=== PATIENT | male | born 1970 | race Caucasian/White ===

== ENCOUNTER 2016-09-20 21:21 | Emergency (ER) | payer OTHER ==
[~2016-09-20] VITALS: Ht 177.8 cm; Wt 205.0 kg
[2016-09-20 21:21] VITALS: BP_SYST 134
[2016-09-20 23:54] LABS: BASOPHILS # (AUTO) 0.1 K/uL (0.0-0.2); EOSINOPHILS # (AUTO) 0.2 K/uL (0.0-0.4); EOSINOPHILS % (AUTO) 2.3 % (0.0-4.0); HEMATOCRIT 35.5 % (36-54); HEMOGLOBIN 11.7 g/dL (14.0-18.0); LYMPHOCYTES # (AUTO) 1.9 K/uL (1.0-5.5); LYMPHOCYTES % (AUTO) 24.2 % (20.5-51.5); MEAN CORPUSCULAR HEMOGLOBIN 28 pg (27-31); MEAN CORPUSCULAR HGB CONC 33 % (32-36); MEAN CORPUSCULAR VOLUME 83 fL (79.0-98.0); MONOCYTES # (AUTO) 0.5 K/uL (0.0-1.0); MONOCYTES % (AUTO) 6.7 % (1.7-9.3); NEUTROPHILS # (AUTO) 5.3 K/uL (1.8-7.7); NEUTROPHILS % (AUTO) 65.8 % (40.0-70.0); PLATELET COUNT (AUTO) 248 K/uL (130-430); RED BLOOD CELL COUNT(AUTO) 4.26 MIL/uL (4.2-6.2); RED CELL DISTRIBUTION WIDTH 14.2 % (9.0-15.0)
[2016-09-21 00:10] LABS: CALCIUM 8.5 mg/dL (8.4-11.0); CREATININE 0.78 mg/dL (0.55-1.30)
[2016-09-21 00:15] LABS: ALBUMIN 3.2 g/dL (3.4-4.8); TOTAL BILIRUBIN 0.3 mg/dL (0.0-1.0); TOTAL PROTEIN, SERUM 7.6 g/dL (6.4-8.3)
[2016-09-21] MEDS ORDERED: KETOROLAC TROMETHAMINE 30 MG VIAL IVP ONE (00:15)
[2016-09-21 02:12] VITALS: BP_SYST 130
[2016-09-21] MEDS ORDERED: NITROGLYCERIN 0.4 MG TAB.SUBL SL ONE (16:59)
== END 2016-09-21 02:12 | disposition home or self-care (01) ==
LOC: SED 21:21
DX: R10.11 Right upper quadrant pain (principal); I10 Essential (primary) hypertension; Z98.84 Bariatric surgery status; Z88.1 Allergy status to other antibiotic agents
CPT/HCPCS: 36415; 76705; 80053; 83690; 85025; 96374; 99285; J1885

== ENCOUNTER 2017-01-15 18:26 | Emergency (ER) | payer OTHER ==
[~2017-01-15] VITALS: Ht 177.8 cm; Wt 199.6 kg
[2017-01-15 18:56] VITALS: BP_SYST 197
[2017-01-15] MEDS ORDERED: NITROGLYCERIN 0.4 MG TAB.SUBL SL ONE (19:00)
[2017-01-15] MEDS ORDERED: ASPIRIN 325 MG TABLET PO ONE (19:00)
[2017-01-15 19:14] LABS: BASOPHILS % (AUTO) 0.5 % (0.0-2.0); EOSINOPHILS # (AUTO) 0.2 K/uL (0.0-0.4); EOSINOPHILS % (AUTO) 2.8 % (0.0-4.0); HEMATOCRIT 37.5 % (36-54); HEMOGLOBIN 12.4 g/dL (14.0-18.0); LYMPHOCYTES # (AUTO) 1.7 K/uL (1.0-5.5); LYMPHOCYTES % (AUTO) 21.5 % (20.5-51.5); MEAN CORPUSCULAR HEMOGLOBIN 27 pg (27-31); MEAN CORPUSCULAR HGB CONC 33 % (32-36); MEAN CORPUSCULAR VOLUME 83 fL (79.0-98.0); MONOCYTES # (AUTO) 0.5 K/uL (0.0-1.0); MONOCYTES % (AUTO) 5.9 % (1.7-9.3); NEUTROPHILS # (AUTO) 5.6 K/uL (1.8-7.7); NEUTROPHILS % (AUTO) 69.3 % (40.0-70.0); PLATELET COUNT (AUTO) 274 K/uL (130-430); RED BLOOD CELL COUNT(AUTO) 4.54 MIL/uL (4.2-6.2); RED CELL DISTRIBUTION WIDTH 14.2 % (9.0-15.0)
[2017-01-15 19:24] LABS: CALCIUM 8.6 mg/dL (8.4-11.0); CREATININE 0.75 mg/dL (0.55-1.30); POTASSIUM 4.1 mmol/L (3.5-5.1)
[2017-01-15 19:29] LABS: ALBUMIN 3.3 g/dL (3.4-4.8); TOTAL BILIRUBIN 0.2 mg/dL (0.0-1.0)
[2017-01-15 20:46] VITALS: BP_SYST 119
== END 2017-01-15 20:46 | disposition home or self-care (01) ==
LOC: SED 18:26
DX: R07.89 Other chest pain (principal); I10 Essential (primary) hypertension; Z88.1 Allergy status to other antibiotic agents; E66.01 Morbid (severe) obesity due to excess calories; Z68.44 Body mass index [BMI] 60.0-69.9, adult
CPT/HCPCS: 36415; 71010; 80053; 82550-TC; 83880; 84484; 85025; 85379; 93005; 99285

== ENCOUNTER 2017-04-10 10:29 | Emergency (ER) | payer OTHER ==
[~2017-04-10] VITALS: Ht 177.8 cm; Wt 208.7 kg
[2017-04-10 10:29] VITALS: BP_SYST 140
--- NOTE | 2017-04-10 10:29 | NUR ---
BROUGHT BACK TO BED #8 AND TRIAGED. REPORT GIVEN TO DAMARIS
--- NOTE | 2017-04-10 10:35 | NUR ---
Pt presents to ER c/o pain with urination, hematuria, and R flank pain. Pt reports these symptoms have been present past 2 days. Pt reports pain level 10/10. Pt reports history of HTN, kidney stones, and Rheumatoid arthiritis. Pt in no acute distress, AOX4, allergy to azithromycin noted.
--- NOTE | 2017-04-10 10:40 | NUR ---
ER at bedside examining patient.
--- NOTE | 2017-04-10 10:57 | NUR ---
Urine collected and sent to lab.
[2017-04-10 11:01] LABS: BILIRUBIN,URINE 1+ (NEGATIVE); BLOOD, URINE 3+ (NEGATIVE); CLARITY/URINE CLOUDY (CLEAR); COLOR,URINE BROWN (YELLOW); GLUCOSE,URINE NEGATIVE (NEGATIVE); KETONES,URINE NEGATIVE (NEGATIVE); LEUKOCYTE ESTERASE ,URINE 2+ (NEGATIVE); NITRITE, URINE NEGATIVE (NEGATIVE); PROTEIN URINE 2+ (NEGATIVE); UROBILINOGEN,URINE 0.2 (0.2-1.0)
--- NOTE | 2017-04-10 11:08 | NUR ---
Pt medicated for pain level 10/10 in bilateral flanks. Pt tolerated well, will continue to monitor.
[2017-04-10] MEDS: KETOROLAC TROMETHAMINE 60 MG/2 ML VIAL IM ONE ×2 (11:10)
[2017-04-10 11:11] LABS: RBC,URINE >100 /HPF (0-3); WBC,URINE >100 /HPF (0-3)
[2017-04-10 11:12] LABS: BACTERIA,URINE MODERATE /HPF (None Seen)
--- NOTE | 2017-04-10 11:27 | NUR ---
Pt pain level reassessed. Pt states that pain is now 4/10. Will continue to monitor.
[2017-04-10 11:28] LABS: BASOPHILS % (AUTO) 0.6 % (0.0-2.0); CALCIUM 8.9 mg/dL (8.4-11.0); CREATININE 0.74 mg/dL (0.55-1.30); EOSINOPHILS # (AUTO) 0.2 K/uL (0.0-0.4); EOSINOPHILS % (AUTO) 2.6 % (0.0-4.0); LYMPHOCYTES # (AUTO) 1.7 K/uL (1.0-5.5); LYMPHOCYTES % (AUTO) 22.3 % (20.5-51.5); MEAN CORPUSCULAR HEMOGLOBIN 27 pg (27-31); MEAN CORPUSCULAR HGB CONC 33 % (32-36); MEAN CORPUSCULAR VOLUME 82 fL (79.0-98.0); MONOCYTES # (AUTO) 0.4 K/uL (0.0-1.0); MONOCYTES % (AUTO) 5.6 % (1.7-9.3); NEUTROPHILS # (AUTO) 5.4 K/uL (1.8-7.7); NEUTROPHILS % (AUTO) 68.9 % (40.0-70.0); PLATELET COUNT (AUTO) 271 K/uL (130-430); RED BLOOD CELL COUNT(AUTO) 4.76 MIL/uL (4.2-6.2); RED CELL DISTRIBUTION WIDTH 14.5 % (9.0-15.0); WHITE BLOOD COUNT (AUTO) 7.7 K/uL (4.8-10.8)
[2017-04-10 11:32] LABS: ALBUMIN 3.5 g/dL (3.4-4.8); TOTAL BILIRUBIN 0.3 mg/dL (0.0-1.0)
--- NOTE | 2017-04-10 12:32 | NUR ---
ER at bedside providing pt with an update on lab results.
--- NOTE | 2017-04-10 13:11 | NUR ---
Pt provided with strainer to monitor for passing of stones when pt urinates.
[2017-04-10 13:12] VITALS: BP_SYST 153
--- NOTE | 2017-04-10 13:12 | NUR ---
Patient given written and verbal discharge instructions and verbalizes understanding. ER MD discussed with patient the results and treatment provided. Patient in stable condition. ID arm band removed. Rx of Toradol given. Patient educated on pain management and to follow up with PMD. Pain Scale 8/10 but pt advised to fill out prescription pain med and take it at home. Opportunity for questions provided and answered.
== END 2017-04-10 13:12 | disposition home or self-care (01) ==
LOC: SED 10:30
DX: N20.0 Calculus of kidney (principal); R31.9 Hematuria, unspecified; I10 Essential (primary) hypertension; E66.01 Morbid (severe) obesity due to excess calories; Z68.44 Body mass index [BMI] 60.0-69.9, adult; Z87.442 Personal history of urinary calculi; Z88.1 Allergy status to other antibiotic agents
CPT/HCPCS: 36415; 80053; 81000; 83690; 85025; 87086; 87186; 96372; 99284; J1885

== ENCOUNTER 2017-07-10 20:24 | Emergency (ER) | payer OTHER ==
[~2017-07-10] VITALS: Ht 177.8 cm; Wt 186.9 kg
[2017-07-10 20:30] VITALS: BP_SYST 160
[2017-07-10] MEDS ORDERED: KETOROLAC TROMETHAMINE 60 MG/2 ML VIAL IM ONE (20:45)
[2017-07-10 21:50] VITALS: BP_SYST 138
== END 2017-07-10 21:50 | disposition home or self-care (01) ==
LOC: SED 20:24
DX: S40.011A Contusion of right shoulder, initial encounter (principal); S80.02XA Contusion of left knee, initial encounter; S90.112A Contusion of left great toe without damage to nail, initial encounter; I10 Essential (primary) hypertension; M06.9 Rheumatoid arthritis, unspecified; E66.01 Morbid (severe) obesity due to excess calories; Z68.43 Body mass index [BMI] 50.0-59.9, adult; Z88.1 Allergy status to other antibiotic agents; W01.0XXA Fall on same level from slipping, tripping and stumbling without subsequent striking against object, initial encounter; Y93.89 Activity, other specified; Y92.89 Other specified places as the place of occurrence of the external cause; Y99.8 Other external cause status
CPT/HCPCS: 73030; 73560; 73630; 96372; 99284; J1885

== ENCOUNTER 2017-12-03 22:34 | Emergency (ER) | payer OTHER ==
[~2017-12-03] VITALS: Ht 177.8 cm; Wt 213.2 kg
[2017-12-03 23:31] VITALS: BP_SYST 120
--- NOTE | 2017-12-03 23:35 | NUR ---
Note undone in EDM - 12/04/17 at 0239 by [email or web address] Pt is AAOx4 and ambulatory. Pt c/o 12/21 pain in his left foot. Swelling and redness is noted to the site. Per pt he fell while taking out the trash a couple weeks ago and his ankle/foot has "never been the same". Pt states pain is most felt on the lateral edge of his foot. Pt denies any other complaints at this time. Will continue to monitor pt.
--- NOTE | 2017-12-04 00:23 | NUR ---
Patient to ER bed 02 to gown for evaluation. Side rails up. Report given to RADHA Vazquez
--- NOTE | 2017-12-04 00:30 | NUR ---
Pt is AAOx4 and ambulatory. Pt c/o 10/10 pain in his left foot. Swelling and redness is noted to the site. Per pt he fell while taking out the trash a couple weeks ago and his ankle/foot has "never been the same". Pt states pain is most felt on the lateral edge of his foot. Pt denies any other complaints at this time. Will continue to monitor pt.
--- NOTE | 2017-12-04 00:35 | NUR ---
HERMELINDO Beach at bedside examining patient.
[2017-12-04] MEDS ORDERED: HYDROcodone/ACETAMIN 5-325 MG TAB (NORCO/ VICODIN) PO ONE ×2 (01:00→02:15)
[2017-12-04 01:22] LABS: BASOPHILS # (AUTO) 0.2 K/uL (0.0-0.2); BASOPHILS % (AUTO) 1.6 % (0.0-2.0); EOSINOPHILS # (AUTO) 0.3 K/uL (0.0-0.4); HEMATOCRIT 38.5 % (36-54); HEMOGLOBIN 12.4 g/dL (14.0-18.0); LYMPHOCYTES # (AUTO) 2.6 K/uL (1.0-5.5); LYMPHOCYTES % (AUTO) 26.7 % (20.5-51.5); MEAN CORPUSCULAR HEMOGLOBIN 28 pg (27-31); MEAN CORPUSCULAR HGB CONC 32 % (32-36); MEAN CORPUSCULAR VOLUME 87 fL (79.0-98.0); MONOCYTES # (AUTO) 1.1 K/uL (0.0-1.0); MONOCYTES % (AUTO) 10.9 % (1.7-9.3); NEUTROPHILS # (AUTO) 5.4 K/uL (1.8-7.7); NEUTROPHILS % (AUTO) 57.8 % (40.0-70.0); PLATELET COUNT (AUTO) 264 K/uL (130-430); RED BLOOD CELL COUNT(AUTO) 4.43 MIL/uL (4.2-6.2); RED CELL DISTRIBUTION WIDTH 14.9 % (9.0-15.0); WHITE BLOOD COUNT (AUTO) 9.6 K/uL (4.8-10.8)
[2017-12-04 01:39] LABS: CALCIUM 9.1 mg/dL (8.4-11.0); POTASSIUM 3.9 mmol/L (3.5-5.1)
[2017-12-04 01:44] LABS: ALBUMIN 3.3 g/dL (3.4-4.8); TOTAL BILIRUBIN 0.2 mg/dL (0.0-1.0)
[2017-12-04] MEDS ORDERED: KETOROLAC TROMETHAMINE 60 MG/2 ML VIAL IM ONE (02:15)
[2017-12-04 02:30] VITALS: BP_SYST 120
--- NOTE | 2017-12-04 02:30 | NUR ---
Patient given written and verbal discharge instructions and verbalizes understanding. ER MD discussed with patient the results and treatment provided. Patient in stable condition. Patient educated on pain management and to follow up with PMD. Pain Scale 2/10 but tolerable for pt.Opportunity for questions provided and answered. Medication side effect fact sheet provided.
== END 2017-12-04 02:30 | disposition home or self-care (01) ==
LOC: SED 22:34
DX: S93.602A Unspecified sprain of left foot, initial encounter (principal); I10 Essential (primary) hypertension; M06.9 Rheumatoid arthritis, unspecified; E66.01 Morbid (severe) obesity due to excess calories; Z68.44 Body mass index [BMI] 60.0-69.9, adult; Z88.1 Allergy status to other antibiotic agents; W10.9XXA Fall (on) (from) unspecified stairs and steps, initial encounter; Y93.89 Activity, other specified; Y92.009 Unspecified place in unspecified non-institutional (private) residence as the place of occurrence of the external cause; Y99.8 Other external cause status
CPT/HCPCS: 36415; 73630; 80053; 83880; 85025; 96372; 99285; J1885

== ENCOUNTER 2018-11-27 01:04 | Inpatient (IN) | payer OTHER ==
[~2018-11-27] VITALS: Ht 180.3 cm; Wt 216.8 kg
[2018-11-27] VITALS (7 sets, daily range): BP systolic 115–158
--- NOTE | 2018-11-27 01:04 | NUR ---
Dr Ronquillo attempting to do MSE at the parking lot prior registration while patient was vomiting, pt frustrated,this nurse attempted to get patient into wheelchair, pt frustrated ,pt walked himself to room [address] Ronquillo directions , magnetic prospecting supervisor notified.
--- NOTE | 2018-11-27 01:05 | NUR ---
Placed on lunchroom monitor, blood pressure machine and pulse oximeter. To gown for exam. Side rails up.Report given to Leonarda and Dr Woo .
--- NOTE | 2018-11-27 01:05 | NUR ---
Patient to ER bed 05 to gown for evaluation. Side rails up.
--- NOTE | 2018-11-27 01:06 | NUR ---
ER at bedside examining patient.
--- NOTE | 2018-11-27 01:09 | NUR ---
Placed in room 08 . Placed on material handler 2nd shift, blood pressure machine and pulse oximeter. To gown for exam. Side rails up.
--- NOTE | 2018-11-27 01:10 | NUR ---
patient request more time. educated patient on delay in treatment in emergency settings. MD notified.
[2018-11-27] MEDS ORDERED: ONDANSETRON HCL 4 MG/2 ML VIAL IVP ONE (01:15)
[2018-11-27] MEDS ORDERED: NACL 0.9% 1,000 ML IV ONE ×2 (01:15→04:30)
[2018-11-27] MEDS ORDERED: MORPHINE 2 MG/ML INJ. SYRINGE IVP ONE (01:15)
--- NOTE | 2018-11-27 01:20 | NUR ---
patient refused IV placement. patient stated "I need more time."
--- NOTE | 2018-11-27 01:20 | NUR ---
lab attempt x3 to draw without success. patient refused forth attempt
--- NOTE | 2018-11-27 01:25 | NUR ---
requested IV placement. patient refused IV placement, patient stated "I need more time." educated patient on delay in treatment protocol. notified MD and charge nurse.
--- NOTE | 2018-11-27 01:31 | NUR ---
patient BIB with c/o right bui pain x one day. patient has been moving boxes for the past week. patient states has chronic back pain and he may have hurt his back and bui over the weekend. patient states pain is 8/10. patient vomited and coughed x 2 today. patient denies flu shot this year. no other compalint or injury at this time.
--- NOTE | 2018-11-27 01:45 | NUR ---
Note [email or web address] in EDM - 11/27/18 at 0214 by [email or web address] Medicated per MD orders. IVF infusing with no s/s of infiltration at this time. Will cont to monitorMedication reconciliation completed with information provided by []. Any prior medication reconciliation on file was reviewed and corrected.
--- NOTE | 2018-11-27 01:45 | NUR ---
# 22 gauge angiocath placed to RAC. Use of asceptic technique. Opsite placed over site. Blood return noted. Blood for lab drawn from site. Flushed with 10 cc of normal saline. No evidence of infiltration noted. Patient tolerated well.
--- NOTE | 2018-11-27 01:45 | NUR ---
Medicated per MD orders. IVF infusing with no s/s of infiltration at this time. Will cont to monitor
--- NOTE | 2018-11-27 01:50 | NUR ---
refused to provide urine at this time. patient understands it delays treatment option.
--- NOTE | 2018-11-27 02:10 | NUR ---
Attempted to start an IV on L arm x 2, unable to get IV at this time. Dr Ronquillo notified.
--- NOTE | 2018-11-27 02:30 | NUR ---
Attempted to start an IV on R hand x 1, unable to get IV at this time. Dr Ronquillo notified.
--- NOTE | 2018-11-27 02:35 | NUR ---
Lab at bedside attempting to get blood, unable to get blood
--- NOTE | 2018-11-27 02:50 | NUR ---
IV started to R upper arm 22 gauge , unable to obtain blood at this time , Dr Ronquillo notified,suggested femoral stick or other method to obtain blood, per Dr Ronquillo "is there somebody else that could try it", warehouse foreman notified.
--- NOTE | 2018-11-27 03:00 | NUR ---
Lab at bedside attempting to obtain blood , unable to obtain blood at this time, notified
--- NOTE | 2018-11-27 03:15 | NUR ---
patient resting with at bedside. asked patient again for urine. patient refused. no other intervention given.
[2018-11-27] MEDS ORDERED: cefTRIAXone 1 GM in D5W 50 ML IV ONE (03:30)
[2018-11-27] MEDS ORDERED: VANCOMYCIN HCL 1,000 MG in NS 250 ML IV ONE (03:30)
--- NOTE | 2018-11-27 03:45 | NUR ---
Pt refusing to be stuck anymore, warehouse stocker notified .
[2018-11-27] MEDS ORDERED: VANCOMYCIN HCL 1000 MG/VIAL IV ONE (04:15)
[2018-11-27] MEDS ORDERED: cefTRIAXone 1 GM VIAL ONE (04:16)
--- NOTE | 2018-11-27 05:00 | NUR ---
patient provided urine
[2018-11-27] MEDS ORDERED: MORPHINE 4 MG/ML INJ. SYRINGE IVP PRN (05:15)
[2018-11-27] MEDS ORDERED: cefTRIAXone 1 GM IVPB PREMIX 50 ML IV SCH (05:15)
[2018-11-27] MEDS ORDERED: ONDANSETRON HCL 4 MG/2 ML VIAL IVP PRN (05:15)
--- NOTE | 2018-11-27 05:16 | NUR ---
Patient will be admitted to care of Dr. Billings. Admitted to Med/surg unit. Will go to room 117-A. Belongings list completed. Summary report printed. Report will be given at bedside.
--- NOTE | 2018-11-27 05:40 | NUR ---
ADMISSION NOTE Received patient from ER via theresa, received report from RADHA DANGELO. Patient admitted with diagnosis of LEFT FLANK PAIN,LEFT LOWER CELLULITIS. Patient oriented to hospital routine, call light, toileting and safety-patient verbalized understanding.
--- NOTE | 2018-11-27 05:45 | NUR ---
INITIAL NOTE RECEIVED PATIENT AWAKE, ALERT AND ORIENTED. ABLE TO TRANSFER FROM [facility] TO THE BED. OBESE. SALINE LOCK FLUSHED. BLE EDEMAL, TOOK PHOTO. ASSESSMENT DONE. ORIENTED TO ROOM, CALL LIGHT AND FALL/SAFETY PRECAUTIONS. CARE AND MONITORING WILL BE PROVIDED PER PROTOCOL. CALL LIGHT WITHIN REACH. BED ALARM OFF PER PATIENT'S REQUEST. BED AT LOWEST POSITION AT ALL TIMES. NEEDS ATTENDED. KEPT WARM AND COMFORTABLE.
[2018-11-27] MEDS: NACL 0.9% 1,000 ML IV SCH ×2 (05:57→15:45)
[2018-11-27] MEDS: HYDROcodone/ACETAMIN 7.5-325 MG TAB PO PRN ×2 (06:05→21:36)
[2018-11-27 06:34] LABS: BILIRUBIN,URINE NEGATIVE (NEGATIVE); BLOOD, URINE NEGATIVE (NEGATIVE); CLARITY/URINE CLEAR (CLEAR); COLOR,URINE YELLOW (YELLOW); GLUCOSE,URINE NEGATIVE (NEGATIVE); KETONES,URINE NEGATIVE (NEGATIVE); LEUKOCYTE ESTERASE ,URINE NEGATIVE (NEGATIVE); NITRITE, URINE NEGATIVE (NEGATIVE); PROTEIN URINE NEGATIVE (NEGATIVE); UROBILINOGEN,URINE 0.2 (0.2-1.0)
--- NOTE | 2018-11-27 06:39 | NUR ---
END NOTE AFEBRILE. MEDICATED FOR LEFT LEG AND LEFT FLANK PAIN 30 MINS AGO. TOLERATING LIQUID. AMBULATES WITH STEADY GAIT. PROVIDED URINAL AT THE BEDSIDE. IV ANTIBIOTIC RESUMED. IVF ORDERED WELL. NEEDS DVT PROPHYLAXIS. CARE AND MONITORING PROVIDED PER PROTOCOL. CALL LIGHT WITHIN REACH. BED ALARM OFF PER PATIENT'S REQUEST. BED AT LOWEST POSITION AT ALL TIMES. REPOSITIONS SELF. NEEDS ATTENDED. KEPT WARM AND COMFORTABLE.
--- NOTE | 2018-11-27 07:46 | NUR ---
Opening Notes Patient received lying comfortably in his bed, alert, awake and verbally responsive. Denies any pain or discomfort at this time. Able to verbalize needs and concerns. Respiration even and unlabored. Educated patient on importance of call light rubi when ambulating, and fall precautions, patient verbalized understanding. IVF infusing well. Call light within the reach. Will continue to monitor.
[2018-11-27] MEDS ORDERED: KETOROLAC TROMETHAMINE 30 MG VIAL IVP PRN (08:45)
--- NOTE | 2018-11-27 08:53 | NUR ---
CONSULT UROLOGY DR. MIKE CALLED SPOKE TO CRYSTAL DIALED [phone] VAN
--- NOTE | 2018-11-27 08:55 | NUR ---
CONSULT ORTHOPEDICS DR. MANUEL CALLED SPOKE TO DIALLO DIALED [phone] VAN
--- NOTE | 2018-11-27 09:45 | NUR ---
RN ROUND Patient reman to be alert, awake and verbally responsive. Denies any pain or discomfort at this time. Able to verbalize needs and concern. Assisted to restroom, able to ambulate independently with steady gait. Call light within easy reach. Will continue to monitor.
[2018-11-27] MEDS ORDERED: ALBUTEROL SULFATE 0.083% 2.5 MG/3 ML VIAL.NEB INH PRN (10:00)
[2018-11-27] MEDS: GABAPENTIN 100 MG CAPSULE PO SCH ×4 (10:25→21:14)
[2018-11-27] MEDS: LISINOPRIL 10 MG TABLET (PRINIVIL) PO SCH (10:25)
[2018-11-27 11:29] LABS: BASOPHILS % (AUTO) 0.2 % (0.0-2.0); HEMATOCRIT 38.4 % (36-54); HEMOGLOBIN 12.7 g/dL (14.0-18.0); LYMPHOCYTES # (AUTO) 0.5 K/uL (1.0-5.5); MEAN CORPUSCULAR HEMOGLOBIN 30 pg (27-31); MEAN CORPUSCULAR HGB CONC 33 % (32-36); MEAN CORPUSCULAR VOLUME 90 fL (79.0-98.0); MONOCYTES # (AUTO) 0.2 K/uL (0.0-1.0); MONOCYTES % (AUTO) 1.6 % (1.7-9.3); NEUTROPHILS # (AUTO) 14.4 K/uL (1.8-7.7); NEUTROPHILS % (AUTO) 95.2 % (40.0-70.0); PLATELET COUNT (AUTO) 138 K/uL (130-430); RED BLOOD CELL COUNT(AUTO) 4.28 MIL/uL (4.2-6.2); RED CELL DISTRIBUTION WIDTH 14.9 % (9.0-15.0); WHITE BLOOD COUNT (AUTO) 15.1 K/uL (4.8-10.8)
--- NOTE | 2018-11-27 11:30 | NUR ---
Dr. Aggarwal Rounds 'Seen and examined by Dr. Aggarwal, will follow-up for any new orders.
[2018-11-27 11:39] LABS: CALCIUM 7.9 mg/dL (8.4-11.0); CREATININE 0.82 mg/dL (0.55-1.30); POTASSIUM 4.2 mmol/L (3.5-5.1)
[2018-11-27 11:42] LABS: INR 1.1 (0.80-1.20); PROTHROMBIN TIME 10.8 SECS (9.5-12.5)
[2018-11-27 11:46] LABS: ALBUMIN 3.2 g/dL (3.4-4.8); TOTAL BILIRUBIN 0.4 mg/dL (0.0-1.0)
--- NOTE | 2018-11-27 12:29 | NUR ---
Dr. Watkins Rounds Seen and examined by Dr. Watkins will follow-up for any new orders.
--- NOTE | 2018-11-27 13:00 | NUR ---
CT Scan cannor be done due to weight received a call from Radiology and that patient will not be able to do Ct scan due to weight.
[2018-11-27] MEDS ORDERED: FUROSEMIDE 20 MG/2 ML VIAL IVP ONE (13:45)
[2018-11-27] MEDS ORDERED: POTASSIUM CHLORIDE 20 MEQ TAB.PRT.SR PO ONE (14:00)
--- NOTE | 2018-11-27 14:01 | NUR ---
Dr. Wood Round Seen and examined by Dr. Wood, will follow-up for any new orders.
--- NOTE | 2018-11-27 14:19 | NUR ---
out of unit for X-ray Patient out of unit for x-ray, stable, denies any pain or discomfort at this time.
--- NOTE | 2018-11-27 14:25 | NUR ---
Unable to do Xray stock trader reported patient unable to tolerate X-ray procedure due to feeling dizzy lying down, back to his bed, patient remain to be alert, awake and verbally responsive. Denies any pain or discomfort at this time. Noted with slight dizziness, v/s stable. Call light within the reach. Fall precaution observed. Will continue to monitor.
--- NOTE | 2018-11-27 16:00 | NUR ---
RN ROUND Patient currently lying comfortably in his bed with respiration even and unlabored. Able to verbalize needs and concerns. Complained of back pain but able to tolerate, refused pain medication. Educated patient to use call light rubi before going to the restroom, fall precaution observed. Call light within the reach.
[2018-11-27] MEDS: MONTELUKAST 10 MG TABLET PO SCH (17:54)
--- NOTE | 2018-11-27 18:24 | NUR ---
DR. Wood Paged for cancelled x-ray orders Called and paged Dr. Wood regarding x-ray procedures cancelled, awaiting for call back.
--- NOTE | 2018-11-27 18:40 | NUR ---
Call back from Dr. Wood Received a call from Dr. Wood notified regarding cancellation of x-ray order, per MD to re-order xray of lumbar, abdomen and knee, telephone order verified, noted and carried out.
--- NOTE | 2018-11-27 18:52 | NUR ---
Closing Notes Patient remain to be alert, awake and verbally responsive. Denies any pain or discomfort at this time. Able to verbalize needs and concerns. IVF infusing well. Call light within the reach. Will endorse to next shift.
--- NOTE | 2018-11-27 19:20 | NUR ---
OPENING NOTES PATIENT OUT OF ROOM IN XRAY DEPT FOR ABDOMINAL/LUMBAR SPINE/LT KNEE XRAY.
[2018-11-27] MEDS ORDERED: FUROSEMIDE 40 MG TABLET PO SCH (21:00)
[2018-11-27] MEDS: POTASSIUM CHLORIDE 20 MEQ TAB.PRT.SR PO SCH (21:14)
--- NOTE | 2018-11-27 21:14 | NUR ---
MED PASS PATIENT DUE MEDICATIONS GIVEN. VITAL SIGNS STABLE.
--- NOTE | 2018-11-27 21:36 | NUR ---
PAIN MGT PATIENT MEDICATED WITH NORCO FOR C/O HEADACHE 08/21.
[2018-11-28] MEDS: NACL 0.9% 1,000 ML IV SCH ×2 (00:03→09:19)
[2018-11-28 00:29] VITALS: BP_SYST 140
--- NOTE | 2018-11-28 01:45 | NUR ---
ROUNDS PATIENT OOB TO RESTROOM. NO DISTRESS NOTED. VITAL SIGNS STABLE.
--- NOTE | 2018-11-28 03:45 | NUR ---
ROUNDS PATIENT RESTING IN BED. NO DISTRESS NOTED. IVF INFUSING.
[2018-11-28] MEDS ORDERED: cefTRIAXone 1 GM IVPB PREMIX 50 ML IV ONE (03:48)
[2018-11-28] MEDS ORDERED: cefTRIAXone 1 GM IVPB PREMIX 50 ML IV SCH (05:00)
--- NOTE | 2018-11-28 06:34 | NUR ---
CLOSING NOTES PATIENT RESTING IN BED. BREATHING UNLABORED ON ROOM AIR. IVF INFUSING. PATIENT NEEDS ATTENDED. BED IN LOWEST LOCKED POSITION. CALL LIGHT WIT IN EASY REACH.
[2018-11-28 08:00] VITALS: BP_SYST 149
--- NOTE | 2018-11-28 08:00 | NUR ---
ASSUMPTION OF CARE: RECEIVED PT ASLEEP, EASILY AROUSED VIA VERBAL STIMULI, DX:RISK FOR FLUID VOLUME EXCESS, R/T LEFT LOWER LEG CELLULITIS, LEFT FLANK PAIN. VITAL SIGNS ARE STABLE, NO C/O PAIN, NO S/S OF DISTRESS, AFEBRILE, BREATH SOUNDS ARE CLEAR, BREATHING UNLABORED, IV SITE INTACT, PATENT, NO REDNESS OR SWELLING, ORIENTED TO UNIT, CALL LIGHT PLACED WITHIN REACH, WILL CON'T TO MONITOR AND ASSESS.
[2018-11-28] MEDS ORDERED: BISACODYL 5 MG TABLET.DR (DULCOLAX) PO PRN (08:45)
[2018-11-28] MEDS ORDERED: MAGNESIUM CITRATE 300 ML ORAL SOLUTION PO ONE (08:45)
--- NOTE | 2018-11-28 09:00 | NUR ---
CONTROLLED AREA CHECKER: MORNING MEDS GIVEN, PER ORDERED BY Margarita, TOLERATED WELL, WILL CON'T TO MONITOR AND ASSESS.
[2018-11-28] MEDS: PSYLLIUM HUSK 1 PKT PACKET PO SCH (09:01)
[2018-11-28] MEDS: LISINOPRIL 10 MG TABLET (PRINIVIL) PO SCH (09:01)
[2018-11-28] MEDS: GABAPENTIN 100 MG CAPSULE PO SCH ×4 (09:02→20:26)
[2018-11-28] MEDS: POTASSIUM CHLORIDE 20 MEQ TAB.PRT.SR PO SCH ×2 (09:02→20:26)
[2018-11-28] MEDS: FUROSEMIDE 80 MG TABLET PO SCH (09:02)
[2018-11-28] MEDS: DICLOFENAC SODIUM 25 MG TABLET.DR PO SCH ×2 (09:04→20:26)
[2018-11-28] MEDS: MISOPROSTOL 100 MCG TABLET (CYTOTEC) PO SCH ×2 (09:06→20:34)
[2018-11-28 11:37] VITALS: BP_SYST 148
--- NOTE | 2018-11-28 12:00 | NUR ---
NURSES NOTES: PT OBSERVED WHILE RESTING IN BED WITH NO SIGN OF DISTRESS, NO INDICATION OF PAIN OR DISCOMFORT, CALL LIGHT PLACED WITHIN REACH, WILL CON'T TO MONITOR AND ASSESS.
[2018-11-28 13:03] VITALS: BP_SYST 145
[2018-11-28] MEDS ORDERED: CARISOPRODOL 350 MG TABLET PO PRN (13:45)
[2018-11-28] MEDS ORDERED: cefTRIAXone 1 GM in D5W 50 ML IV ONE (14:00)
[2018-11-28 15:26] VITALS: BP_SYST 124
--- NOTE | 2018-11-28 18:00 | NUR ---
END OF SHIFT: PT ASLEEP, WITH NO SIGNIFICANT CHANGES NOTED AT THIS TIME, NEEDS MET, TELEPHONE, CALL LIGHT, WATER PLACED WITHIN REACH, WILL CON'T TO MONITOR AND ASSESS, ENDORSE TO BRINE TANK TENDER NURSE.
[2018-11-28] MEDS: MONTELUKAST 10 MG TABLET PO SCH (18:15)
[2018-11-28 19:16] LABS: BASOPHILS % (AUTO) 0.6 % (0.0-2.0); EOSINOPHILS # (AUTO) 0.1 K/uL (0.0-0.4); EOSINOPHILS % (AUTO) 2.3 % (0.0-4.0); HEMATOCRIT 39.2 % (36-54); LYMPHOCYTES # (AUTO) 1.2 K/uL (1.0-5.5); LYMPHOCYTES % (AUTO) 21.7 % (20.5-51.5); MEAN CORPUSCULAR HEMOGLOBIN 30 pg (27-31); MEAN CORPUSCULAR HGB CONC 33 % (32-36); MEAN CORPUSCULAR VOLUME 90 fL (79.0-98.0); MONOCYTES # (AUTO) 0.4 K/uL (0.0-1.0); MONOCYTES % (AUTO) 7.8 % (1.7-9.3); NEUTROPHILS # (AUTO) 3.8 K/uL (1.8-7.7); NEUTROPHILS % (AUTO) 67.6 % (40.0-70.0); PLATELET COUNT (AUTO) 106 K/uL (130-430); RED BLOOD CELL COUNT(AUTO) 4.36 MIL/uL (4.2-6.2); RED CELL DISTRIBUTION WIDTH 15.2 % (9.0-15.0); WHITE BLOOD COUNT (AUTO) 5.7 K/uL (4.8-10.8)
[2018-11-28 19:30] LABS: CALCIUM 7.8 mg/dL (8.4-11.0); CREATININE 0.78 mg/dL (0.55-1.30); POTASSIUM 3.9 mmol/L (3.5-5.1)
--- NOTE | 2018-11-28 19:30 | NUR ---
INITIAL NOTE RECEIVED PATIENT AWAKE, ALERT AND ORIENTED. OBESE. NO SOB NOTED. DENIES ANY N/V AT THIS TIME. COMPLAIN OF MILD TO MODERATE LEFT FLANK PAIN BUT REFUSES NORCO BECAUSE OF FEAR OF ITS SIDE EFFECTS CONSTIPATION. OFFERED ANOTHER PAIN MEDICATION. WILL MEDICATE LATER. SALINE LOCK FLUSHED. BLE EDEMA, ELEVATED ON PILLOWS. CARE AND MONITORING WILL BE PROVIDED PER PROTOCOL. CALL LIGHT WITHIN REACH. BED ALARM OFF PER PATIENT'S REQUEST. BED AT LOWEST POSITION AT ALL TIMES. NEEDS ATTENDED. KEPT WARM AND COMFORTABLE. ADVISED TO CALL IF HE FEELS WEAK OR DIZZY. LABS WERE DRAWN.
[2018-11-28 20:00] VITALS: BP_SYST 151
--- NOTE | 2018-11-28 20:25 | NUR ---
RN NOTE DUE MEDS GIVEN ALONG WITH PAIN MEDICATION. TOLERATED WELL. DRINKS A LOT OF WATER. WILL CONTINUE TO MONITOR. NEEDS ATTENDED.
--- NOTE | 2018-11-28 23:00 | NUR ---
RN NOTE PATIENT AWAKE ON HIS PHONE. NO COMPLAINTS AT THIS TIME. NEEDS ATTENDED.
[2018-11-29 00:11] VITALS: BP_SYST 155
--- NOTE | 2018-11-29 01:00 | NUR ---
RN NOTE PATIENT SLEEPING AT THIS TIME. NO SOB OR GRIMACING NOTED.
--- NOTE | 2018-11-29 04:00 | NUR ---
RN NOTE ASLEEP, MOVES OCCASIONALLY. NO DISTRESS NOTED.
--- NOTE | 2018-11-29 06:29 | NUR ---
END NOTE VS STABLE. AFEBRILE. NO COMPLAIN OF SOB OR N/V. MEDICATED FOR BACK AND LEFT LEG PAIN ONCE ALL NIGHT. AMBULATES WELL WITH STEADY GAIT. IVF INFUSING. NO LABS TODAY. CARE AND MONITORING PROVIDED PER PROTOCOL. CALL LIGHT WITHIN REACH. BED ALARM OFF PER PATIENT'S REQUEST. BED AT LOWEST POSITION AT ALL TIMES. NEEDS ATTENDED. KEPT WARM AND COMFORTABLE.
[2018-11-29 08:00] VITALS: BP_SYST 142
[2018-11-29] MEDS: PSYLLIUM HUSK 1 PKT PACKET PO SCH (09:00)
--- NOTE | 2018-11-29 09:00 | NUR ---
SAFETY SITTER: MORNING MEDS GIVEN, PER ORDERED BY Margarita, TOLERATED WELL, WILL CON'T TO MONITOR AND ASSESS.
[2018-11-29] MEDS: GABAPENTIN 100 MG CAPSULE PO SCH ×2 (09:08→12:07)
[2018-11-29] MEDS: DICLOFENAC SODIUM 25 MG TABLET.DR PO SCH (09:08)
[2018-11-29] MEDS: POTASSIUM CHLORIDE 20 MEQ TAB.PRT.SR PO SCH (09:08)
[2018-11-29] MEDS: FUROSEMIDE 80 MG TABLET PO SCH (09:09)
[2018-11-29] MEDS: LISINOPRIL 10 MG TABLET (PRINIVIL) PO SCH (09:09)
[2018-11-29] MEDS: MISOPROSTOL 100 MCG TABLET (CYTOTEC) PO SCH (09:11)
--- NOTE | 2018-11-29 09:41 | NUR ---
PT note Attempted to have patient participate with therapy; patient refusing stating "I walk on my own, no problem", nursing made aware.
[2018-11-29 12:00] VITALS: BP_SYST 129
[2018-11-29] MEDS ORDERED: POTA-88 PO (14:05)
[2018-11-29] MEDS ORDERED: FURO80TA86 PO (14:05)
[2018-11-29] MEDS ORDERED: AMOX-423 PO (14:06)
[2018-11-29 15:04] VITALS: BP_SYST 147
--- NOTE | 2018-11-29 15:29 | NUR ---
DISCHARGE: PT DISCHARGED TO HOME, INSTRUCTIONS GIVEN WITH PRESCRIPTION, AND APPT DATE. VERBALIZES UNDERSTANDING, ALL BELONGINGS ACCOUNTED FOR AND RETURNED TO PT, CONDITION IS STABLE, IV SITE DISCONTINUED, PRESSURE DRSG APPLIED, TOLERATED WELL, ESCORTED TO AUTO VIA WHEELCHAIR, ACCOMPANIED BY EMPLOYEE.
== END 2018-11-29 16:00 | disposition home or self-care (01) | DRG 603 ==
LOC: SED 01:04 → STU 05:02 → SMU 05:16
PROVIDERS: ADMIT Internal Medicine; ATTEND Internal Medicine
DX: L03.116 Cellulitis of left lower limb (principal); Z68.44 Body mass index [BMI] 60.0-69.9, adult; E66.01 Morbid (severe) obesity due to excess calories; I10 Essential (primary) hypertension; M06.9 Rheumatoid arthritis, unspecified; M17.12 Unilateral primary osteoarthritis, left knee; J45.909 Unspecified asthma, uncomplicated; G89.29 Other chronic pain; E55.9 Vitamin D deficiency, unspecified; M43.16 Spondylolisthesis, lumbar region; M43.17 Spondylolisthesis, lumbosacral region; M47.9 Spondylosis, unspecified; Z87.442 Personal history of urinary calculi; Z98.84 Bariatric surgery status; Z88.2 Allergy status to sulfonamides; Z79.899 Other long term (current) drug therapy; Z86.73 Personal history of transient ischemic attack (TIA), and cerebral infarction without residual deficits
CPT/HCPCS: 36415; 72100-TC; 73564; 73590-TC; 74018; 76700-TC; 80048; 80053; 81003; 83605; 84484; 85025; 85610-TC; 85730-TC; 93005; 93971; 96361; 96365; 96367; 96375; 99285; J0696; J1885; J1940; J2270; J2405; J3370; J7030; J7060

== ENCOUNTER 2019-09-03 10:10 | Inpatient (IN) | payer BC, OTHER ==
[~2019-09-03] VITALS: Ht 177.8 cm; Wt 214.5 kg
[~2019-09-03 10:10] MED LIST: AMOX-423 PO; FURO80TA86 PO; POTA-88 PO
--- NOTE | 2019-09-03 10:30 | NUR ---
PATIENT TO ER #6
[2019-09-03] MEDS ORDERED: FOLI-43 PO (10:40)
[2019-09-03] MEDS ORDERED: TOCI80VI IV (10:40)
[2019-09-03] MEDS ORDERED: DICL25TA2 PO (10:40)
[2019-09-03] MEDS ORDERED: [UNRECOGNIZED DRUG - CODE] IV (10:40)
[2019-09-03] MEDS ORDERED: LISI20TA PO (10:40)
[2019-09-03 10:41] VITALS: BP_SYST 144
[2019-09-03 11:34] LABS: BASOPHILS # (AUTO) 0.1 K/uL (0.0-0.2); BASOPHILS % (AUTO) 0.8 % (0.0-2.0); EOSINOPHILS # (AUTO) 0.1 K/uL (0.0-0.4); EOSINOPHILS % (AUTO) 0.9 % (0.0-4.0); HEMATOCRIT 38.5 % (36-54); LYMPHOCYTES # (AUTO) 1.5 K/uL (1.0-5.5); LYMPHOCYTES % (AUTO) 14.6 % (20.5-51.5); MEAN CORPUSCULAR HEMOGLOBIN 29 pg (27-31); MEAN CORPUSCULAR HGB CONC 34 % (32-36); MEAN CORPUSCULAR VOLUME 87 fL (79.0-98.0); MONOCYTES # (AUTO) 0.6 K/uL (0.0-1.0); NEUTROPHILS # (AUTO) 8.1 K/uL (1.8-7.7); NEUTROPHILS % (AUTO) 77.7 % (40.0-70.0); PLATELET COUNT (AUTO) 228 K/uL (130-430); RED BLOOD CELL COUNT(AUTO) 4.45 MIL/uL (4.2-6.2); RED CELL DISTRIBUTION WIDTH 14.1 % (9.0-15.0); WHITE BLOOD COUNT (AUTO) 10.4 K/uL (4.8-10.8)
[2019-09-03 11:48] LABS: PROTHROMBIN TIME 9.9 SECS (9.5-12.5)
[2019-09-03 11:52] LABS: CALCIUM 8.6 mg/dL (8.4-11.0); CREATININE 0.83 mg/dL (0.55-1.30); POTASSIUM 4.1 mmol/L (3.5-5.1)
[2019-09-03 11:58] LABS: ALBUMIN 3.2 g/dL (3.4-4.8); TOTAL BILIRUBIN 0.4 mg/dL (0.0-1.0)
[2019-09-03] MEDS ORDERED: CLINDAMYCIN 900 mg/50mL D5W 50 ML IV ONE (12:15)
--- NOTE | 2019-09-03 12:18 | NUR ---
IV HL 18 GUAGE RT AC. TOLERATED WELL
[2019-09-03] MEDS ORDERED: D5W 1,000 ML IV PRN (12:45)
[2019-09-03] MEDS ORDERED: DEXTROSE 50% JECT 50 ML DISP.SYRIN IVP PRN ×2 (12:45→16:30)
[2019-09-03] MEDS ORDERED: ceFAZolin SODIUM 2 GM in D5W 100 ML IV ONE (12:45)
[2019-09-03] MEDS ORDERED: GLUCOSE 15 GM GEL (in 37.5 GM TUBE) PO PRN (12:45)
--- NOTE | 2019-09-03 13:50 | NUR ---
ADMISSION NOTE Received patient from ER via gurney. Patient admitted with diagnosis of abd cellulities. Patient is awake, alert, oriented X [4. Patient oriented to hospital room, call light, toileting, pain management and safety-teach back done. Patient informed that trenton will be his nurse and that their room number is 114-b. Personal belongings checked and Belongings List documented. Call light within reach.
[2019-09-03 13:56] VITALS: BP_SYST 143
--- NOTE | 2019-09-03 14:00 | NUR ---
SEEN AND EXAMINED BY DR. GEIGER [facility].
--- NOTE | 2019-09-03 14:50 | NUR ---
BATHROOM Patient ambulated to bathroom in steady gait. No acute distress. Safety measure maintained. Continue to monitor.
--- NOTE | 2019-09-03 15:20 | NUR ---
ABDOMEN WOUND SPECIMEN SENT TO LAB.
--- NOTE | 2019-09-03 15:22 | NUR ---
WOUND EVALUATION: Wound Consult received from Dr. Peña. Thank you Dr. Peña for the consult. Patient received in a Stacy Bed with an IsoFlex KATI mattress, awake, alert, and oriented. Patient is able to turn in bed independently. Levi Score is a 19. Past Medical History: Hypertension, Morbid Obesity, Rheumatoid Arthritis. Patient admitted with complaint of lower abdominal pain and edema. Recent Labs: WBC 10.4, RBC 4.45, hemoglobin 13.0, hematocrit 38.5, sodium 133, BUN 12, creatinine 0.83, GFR 104, glucose 224, POC glucose 216, serum total protein 8.4, albumin 3.2, PTT 25.0. Microbiology: Blood culture results x2 in progress. Wound culture results in progress. Intrinsic factors that delay wound healing: Hyperglycemia, Hypoalbuminemia. Extrinsic factors that delay wound healing: Morbid Obesity. Wound Assessment: 1. Central Abdomen/Abdominal fold: Cellulitis with abscess, present on admission. Large area of erythema with calor measuring 17.0 cm x 25.0 cm. Abdominal fold area has several nodules that may be abscesses. Foul odor, small sero-purulent drainage drainage. Recommend: Cleanse site with normal saline. Pat dry. Insert calcium alginate dressing into folded inter-dry AG cloth and place into abdominal fold area. Perform site care daily, and as needed for dressing soiling or dislodgement. Also recommend: Encourage repositioning every 2 hours with pillow support and off-load pressure areas with pillows for pressure re-distribution. Perform skin care and monitor skin integrity Q shift. Recommend surgical consult.
[2019-09-03 16:20] VITALS: BP_SYST 144
--- NOTE | 2019-09-03 16:20 | NUR ---
CALLED YONATHAN VALDOVINOS REGARDING THE PATIENT C/O PAIN BUT NO OLIVA MED AVAILABLE. SR. GEIGER STATED THAT HE WILL PUT THE ORDER.
[2019-09-03] MEDS ORDERED: FOLIC ACID 1 MG TABLET PO ONE (16:30)
[2019-09-03] MEDS ORDERED: ONDANSETRON HCL 4 MG/2 ML VIAL IVP PRN (16:30)
[2019-09-03] MEDS ORDERED: IBUPROFEN 600 MG TABLET PO PRN (16:30)
[2019-09-03] MEDS ORDERED: FAMOTIDINE 20 MG TABLET PO ONE (16:30)
[2019-09-03] MEDS ORDERED: ACETAMINOPHEN 325 MG TABLET PO PRN (16:30)
[2019-09-03] MEDS ORDERED: DICLOFENAC SODIUM 25 MG TABLET.DR PO PRN (16:30)
[2019-09-03] MEDS: VANCOMYCIN HCL 2,000 MG in NS 500 ML IV SCH ×2 (16:44→23:59)
[2019-09-03] MEDS: HYDROcodone/ACETAMIN 10-325 MG TAB PO PRN (16:55)
[2019-09-03] MEDS: INSULIN REGULAR, HUMAN 100 UNITS/ML, 10 ML VIAL (humuLIN R) SUBCUT PRN ×2 (16:58→21:10)
--- NOTE | 2019-09-03 16:58 | NUR ---
[id number] Humulin R insulin 4 units given per sliding scale as ordered. No acute distress. Safety measure maintained. Call light within reached. Bed locked in low position, side rails up. Continue to monitor.
--- NOTE | 2019-09-03 18:46 | NUR ---
CLOSING NOTE Patient resting in the bed. No acute distress. Skin warm and dry to touch. IV intact to RAC, no redness, no swelling, patent. All needs met. Safety measure maintained. Call light within reached. Bed locked in low position, side rails up. Will endorse to night nurse.
--- NOTE | 2019-09-03 19:05 | NUR ---
CONSULTATION PAGED/CALLED Reason for Consultation: ABDOMINAL WALL ABSCESS Person Who was Notified: DIALLO Consulting Physician: Email Marketing Specialist Specialty: Ordering Physician:
--- NOTE | 2019-09-03 19:08 | NUR ---
CONSULTATION PAGED/CALLED Reason for Consultation: CELLULITIS Person Who was Notified: CONSUELO Consulting Physician: SERGO GONZALEZ Linux Administrator Specialty: Ordering Physician:
--- NOTE | 2019-09-03 19:28 | NUR ---
RECEIVED THE CALL FROM DR. PAIGE, SUSI Reported the patient's condition of abdomen wound. The wound specimen sent for C & S. Per Dr. Paige will come to see the patient tomorrow.
--- NOTE | 2019-09-03 19:52 | NUR ---
OPENING NOTES Received report from RADHA Mead. Patient resting in bed, AAOx4, breathing evenly and nonlabored on room air. Patient has an IV on the right AC 18g SL, patent and benign, no s/s of infection or infiltration noted at this time. Educated patient on plan of care, fall/safety precautions, call light system, patient stated understanding with return demonstration. Bed is locked and at lowest position, will continue to monitor.
--- NOTE | 2019-09-03 20:05 | NUR ---
ROUNDS Patient resting in bed, eyes closed, breathing evenly and nonlabored on room air. Vital signs stable. No s/s of distress at this time, no other needs at this time. Fall/safety precautions, will continue to monitor. Addendum: 09/04/19 at 0402 by Charli Thomas RN DISREGARD, ERROR.
[2019-09-03 21:00] VITALS: BP_SYST 137
[2019-09-03] MEDS: ceFAZolin SODIUM 2 GM in D5W 100 ML IV SCH (21:04)
[2019-09-03] MEDS: POTASSIUM CHLORIDE 20 MEQ TAB.PRT.SR PO SCH (21:04)
[2019-09-03] MEDS: FAMOTIDINE 20 MG TABLET PO SCH (21:04)
--- NOTE | 2019-09-03 21:24 | NUR ---
MEDICATIONS/ROUNDS Patient resting in bed, awake, breathing evenly and nonlabored on room air. BS was checked earlier, coverage was needed. Patient complained of moderate pain, educated patient on pain medication, nonpharmacological interventions, patient stated understanding. Educated patient on due medications, patient stated understanding. Administered pain and due medications, patient tolerated them well. No other needs at this time. Fall/safety precautions, will continue to monitor.
--- NOTE | 2019-09-03 23:59 | NUR ---
MEDICATIONS/ROUNDS Patient resting in bed, awake, breathing evenly and nonlabored on room air. Educated patient on due medication, patient stated understanding. Administered due medication, patient tolerating it well. No s/s of distress at this time. No other needs at this time. Fall/safety precautions, will continue to monitor.
[2019-09-04 00:34] VITALS: BP_SYST 135
--- NOTE | 2019-09-04 03:44 | NUR ---
ROUNDS Patient resting in bed, eyes closed, breathing evenly and nonlabored on room air. No s/s of distress at this time, no other needs at this time. Fall/safety precautions, will continue to monitor.
[2019-09-04] MEDS: ceFAZolin SODIUM 2 GM in D5W 100 ML IV SCH ×3 (05:04→22:00)
--- NOTE | 2019-09-04 05:05 | NUR ---
MEDICATIONS/ROUNDS Patient resting in bed, awake, breathing evenly and nonlabored on room air. Patient complained of severe pain, educated patient on pain medication, nonpharmacological interventions, patient stated understanding. Educated patient on due medication, patient stated understanding. Administered pain and due medications, patient tolerated them well. Wound care done. No other needs at this time. Fall/safety precautions, will continue to monitor.
[2019-09-04] MEDS: HYDROcodone/ACETAMIN 10-325 MG TAB PO PRN ×2 (05:26→20:47)
[2019-09-04] MEDS: VANCOMYCIN HCL 2,000 MG in NS 500 ML IV SCH ×2 (06:05→15:00)
[2019-09-04] MEDS: INSULIN REGULAR, HUMAN 100 UNITS/ML, 10 ML VIAL (humuLIN R) SUBCUT PRN ×4 (06:10→20:41)
--- NOTE | 2019-09-04 06:45 | NUR ---
CLOSING NOTES Patient resting in bed, awake, breathing evenly and nonlabored on room air. BS was checked, coverage was needed. Educated patient on due medication, patient stated understanding. Administered due medication, patient tolerating it well. Needs met throughout the shift. No s/s of distress at this time. No other needs at this time. Fall/safety precautions, will endorse care to morning shift RN.
--- NOTE | 2019-09-04 06:57 | NUR ---
Nutrition Update Levi Scale 17 noted. Pt admitted for Cellulitis of Abdominal Wall Diet: [facility] BMI: 67.9 kg/m2 RD to follow per nutrition care standards.
[2019-09-04 08:28] VITALS: BP_SYST 153
[2019-09-04] MEDS: FOLIC ACID 1 MG TABLET PO SCH (09:53)
[2019-09-04] MEDS: LISINOPRIL 20 MG TABLET PO SCH (09:53)
[2019-09-04] MEDS: FUROSEMIDE 80 MG TABLET PO SCH (09:54)
[2019-09-04] MEDS: POTASSIUM CHLORIDE 20 MEQ TAB.PRT.SR PO SCH ×2 (09:54→20:38)
[2019-09-04] MEDS: FAMOTIDINE 20 MG TABLET PO SCH ×2 (09:54→20:38)
[2019-09-04 10:25] LABS: TOTAL IRON BIND. CAPACITY 258 ug/dL (250-450)
[2019-09-04 11:03] LABS: BILIRUBIN,URINE NEGATIVE (NEGATIVE); BLOOD, URINE 3+ (NEGATIVE); CLARITY/URINE CLEAR (CLEAR); COLOR,URINE YELLOW (YELLOW); GLUCOSE,URINE TRACE (NEGATIVE); KETONES,URINE NEGATIVE (NEGATIVE); LEUKOCYTE ESTERASE ,URINE NEGATIVE (NEGATIVE); NITRITE, URINE NEGATIVE (NEGATIVE); PH,URINE 5.5 (5.0-8.0); PROTEIN URINE TRACE (NEGATIVE); UROBILINOGEN,URINE 0.2 (0.2-1.0)
[2019-09-04 11:20] LABS: RBC,URINE 20-50 /HPF (0-3)
[2019-09-04 11:21] LABS: BACTERIA,URINE FEW /HPF (None Seen); FINE GRANULAR CASTS,URINE 0-10 /LPF (None Seen); MUCUS,URINE 1+ /LPF (None Seen)
--- NOTE | 2019-09-04 11:59 | NUR ---
Dietitian Recommendations *[facility]commend [facility] per MD orders. *Adhere to pt's food preferences. Please see Nutritional Assessment for details. NOAH MEDINA
[2019-09-04 12:35] VITALS: BP_SYST 127
[2019-09-04 16:22] VITALS: BP_SYST 145
--- NOTE | 2019-09-04 16:28 | NUR ---
Patient agrees with peripherally inserted central line placement recommendation of Doctor Peña. Electronic drive thru order taker complete. Sent a copy to Shoe Dyer for further coordination. José Miguel Mendez RN
--- NOTE | 2019-09-04 16:58 | NUR ---
Nurse request for Medically Doctor signature on peripherally inserted central line consent. Call to Doctor Casey for assistance. José Miguel Mendez RN
--- NOTE | 2019-09-04 19:22 | NUR ---
Handoff with night team registered nurse, Sybil. José Miguel Mendez RN
--- NOTE | 2019-09-04 19:30 | NUR ---
OPENING NOTES Received report from RADHA Valdez. Patient resting in bed, AAOx4, breathing evenly and nonlabored on room air. Patient has no IV access at this time, order for PICC line is in place. Educated patient on plan of care, fall/safety precautions, call light system, patient stated understanding with return demonstration. Bed is locked and at lowest position, will continue to monitor.
[2019-09-04 20:00] VITALS: BP_SYST 127
--- NOTE | 2019-09-04 20:05 | NUR ---
Recliner Recliner brought to patient per request. Patient states that it will help him sleep to sit in a different position. Patient given warm blankets. Safety maintained. Will monitor.
--- NOTE | 2019-09-04 20:47 | NUR ---
Pain/[place] Patient reporting severe pain to the wound in his abdomen. [place] 10-325 mg PO administered as ordered PRN for severe pain. Medication indication, actions, and potential side effects explained to patient. Patient verbalized understanding. Safety precautions maintained. Will monitor.
[2019-09-04] MEDS: CLINDAMYCIN 600 MG in D5W 50 ML IV SCH (20:50)
--- NOTE | 2019-09-04 22:15 | NUR ---
Resting: Patient resting in recliner, eyes closed, breathing evenly and nonlabored on room air. No s/s of distress at this time, no other needs at this time. Fall/safety precautions, will continue to monitor the patient.
--- NOTE | 2019-09-05 00:25 | NUR ---
WOUND CARE Cellulitis with abscess, present on admission. Large area of erythema, warm, measuring 17.0 cm x 25.0 cm. Abdominal fold area has several nodules that may be abscesses. Foul odor, small sero-purulent drainage drainage. Area cleansed with normal saline. Pat dry. Inserted calcium alginate dressing into folded inter-dry AG cloth and placed into abdominal fold area. Pt tolerated well. Will monitor.
--- NOTE | 2019-09-05 01:16 | NUR ---
SPOKE TO DR. HARDIN REGARDING PT'S CASE. ORDER FOR CT OF ABDOMEN/PELVIS WITHOUT CONTRAST RECEIVED. WILL IMPLEMENT.
--- NOTE | 2019-09-05 01:32 | NUR ---
DR. LASHAWN HEALY MD AT [facility]. POC DISCUSSED.
[2019-09-05 02:34] VITALS: BP_SYST 111
--- NOTE | 2019-09-05 03:43 | NUR ---
Resting: Patient resting in bed, eyes closed, breathing evenly and nonlabored on room air. No s/s of distress at this time, no other needs at this time. Fall/safety precautions, will continue to monitor the patient.
[2019-09-05] MEDS: ceFAZolin SODIUM 2 GM in D5W 100 ML IV SCH ×3 (06:16→22:20)
[2019-09-05] MEDS: INSULIN REGULAR, HUMAN 100 UNITS/ML, 10 ML VIAL (humuLIN R) SUBCUT PRN ×2 (06:23→18:11)
--- NOTE | 2019-09-05 06:27 | NUR ---
REFUSED LAB DRAW PT STATED THAT HE "NEEDS A BREAK FROM NEEDLES" AND DOES NOT WANT TO BE "POKED" FOR LAB DRAW THIS MORNING. PT VERBALIZED THAT HE UNDERSTANDS THE NEED FOR CURRENT LABS, BUT CONTINUES TO REFUSE. WILL CONTINUE TO EDUCATE.
--- NOTE | 2019-09-05 06:38 | NUR ---
CLOSING NOTES Patient resting in recliner. AAOx4, breathing evenly and nonlabored on room air. IV antibiotic infusing to LAC, order for PICC line is in place for today. Safety and fall precautions are in place. Call light is with pt. Bed is locked and at lowest position, will continue to monitor until patient care is endorsed to day shift RN.
[2019-09-05] MEDS: LISINOPRIL 20 MG TABLET PO SCH (10:03)
[2019-09-05] MEDS: FOLIC ACID 1 MG TABLET PO SCH (10:03)
[2019-09-05] MEDS: FUROSEMIDE 80 MG TABLET PO SCH (10:04)
[2019-09-05] MEDS: FAMOTIDINE 20 MG TABLET PO SCH ×2 (10:04→22:17)
[2019-09-05] MEDS: CLINDAMYCIN 600 MG in D5W 50 ML IV SCH ×2 (10:06→21:17)
[2019-09-05] MEDS: POTASSIUM CHLORIDE 20 MEQ TAB.PRT.SR PO SCH ×2 (10:09→22:17)
[2019-09-05 11:47] VITALS: BP_SYST 134
--- NOTE | 2019-09-05 12:35 | NUR ---
PAGED PAGED YONATHAN ZAMORA AT [phone] SPOKE WITH RAMSEY.
[2019-09-05 15:52] VITALS: BP_SYST 102
--- NOTE | 2019-09-05 19:30 | NUR ---
OPENING NOTES Patient resting in bed. AAOx4, breathing evenly and nonlabored on room air. IV is saline locked to LAC. Safety and fall precautions are in place. Call light is with pt. Bed is locked and at lowest position, will continue to monitor until patient care is endorsed to day shift RN.
[2019-09-05 20:00] VITALS: BP_SYST 108
--- NOTE | 2019-09-05 21:33 | NUR ---
WOUND CARE Cellulitis with abscess, present on admission. Large area of erythema, warm, measuring 17.0 cm x 25.0 cm. Abdominal fold area has several nodules that may be abscesses. Moderate amount of foul odor, small sero-purulent drainage drainage. Area cleansed with normal saline. Patted dry. Inserted calcium alginate dressing into folded inter-dry AG cloth and placed into abdominal fold area. Pt tolerated well. Will monitor.
--- NOTE | 2019-09-05 21:45 | NUR ---
Fence Maker at bedside for abdominal ultrasound.
[2019-09-05] MEDS: HYDROcodone/ACETAMIN 10-325 MG TAB PO PRN (22:17)
--- NOTE | 2019-09-05 23:37 | NUR ---
WOUND CARE Wound cleansed with normal saline. Patted dry. Inserted calcium alginate dressing into folded inter-dry AG cloth and placed into abdominal fold area. Pt tolerated well. Will monitor.
[2019-09-06 00:27] VITALS: BP_SYST 111
--- NOTE | 2019-09-06 01:48 | NUR ---
WOUND CARE Moderate amount of drainage noted. Wound cleansed with normal saline. Patted dry. Inserted calcium alginate dressing into folded inter-dry AG cloth and placed into abdominal fold area. Pt tolerated well. Will monitor.
--- NOTE | 2019-09-06 03:25 | NUR ---
WOUND CARE Moderate amount of foul smelling drainage noted. Wound cleansed with normal saline. Patted dry. Inserted calcium alginate dressing into folded inter-dry AG cloth and placed into abdominal fold area. Pt tolerated well. Will monitor.
[2019-09-06] MEDS: HYDROcodone/ACETAMIN 10-325 MG TAB PO PRN (04:56)
[2019-09-06] MEDS: ceFAZolin SODIUM 2 GM in D5W 100 ML IV SCH ×2 (05:02→14:17)
[2019-09-06] MEDS: INSULIN REGULAR, HUMAN 100 UNITS/ML, 10 ML VIAL (humuLIN R) SUBCUT PRN ×2 (06:27→11:39)
--- NOTE | 2019-09-06 06:36 | NUR ---
ACCUCHECK/WOUND CARE BLOOD SUGAR OF 184, 2 UNITS OF REGULAR INSULIN ADMINISTERED PER SLIDING SCALE. WOUND CARE DONE. MINIMAL DRAINAGE NOTED. Wound cleansed with normal saline. Patted dry. Inserted calcium alginate dressing into folded inter-dry AG cloth and placed into abdominal fold area. Pt tolerated well. Will monitor.
--- NOTE | 2019-09-06 06:43 | NUR ---
CLOSING NOTES Patient resting in recliner. AAOx4, breathing evenly and nonlabored on room air. IV is saline locked, patent and intact. Safety and fall precautions are in place. Call light is with pt. Bed is locked and at lowest position, will continue to monitor until patient care is endorsed to day shift RN.
--- NOTE | 2019-09-06 07:43 | NUR ---
Opening Note received bedside SBAR report from cook night RN, patient resting in bed, respirations even and unlabored on room air, wound to lower abdomen assessed, dressing clean, dry, and intact at this time, patient reports pain is controlled, educated patient on use of call light and asked to call for assistance, patient verbalized understanding, call light in reach, educated patient on use of bed alarm for patient safety, patient refusing bed alarm, bed in low and locked position.
[2019-09-06 08:00] VITALS: BP_SYST 125
[2019-09-06] MEDS: CLINDAMYCIN 600 MG in D5W 50 ML IV SCH (08:57)
[2019-09-06] MEDS: FUROSEMIDE 80 MG TABLET PO SCH (08:58)
[2019-09-06] MEDS: POTASSIUM CHLORIDE 20 MEQ TAB.PRT.SR PO SCH (08:58)
[2019-09-06] MEDS: FAMOTIDINE 20 MG TABLET PO SCH (08:58)
[2019-09-06] MEDS: LISINOPRIL 20 MG TABLET PO SCH (08:58)
[2019-09-06] MEDS: FOLIC ACID 1 MG TABLET PO SCH (08:58)
--- NOTE | 2019-09-06 10:16 | NUR ---
PAGED PAGED BRIJESH CHARLTON AT [phone] SPOKE WITH JULES.
--- NOTE | 2019-09-06 10:16 | NUR ---
Physician Rounds Dr. Peña at bedside examining patient.
--- NOTE | 2019-09-06 10:40 | NUR ---
Physician Rounds Dr. Belcher at bedside examining patient.
--- NOTE | 2019-09-06 10:55 | NUR ---
Nutrition Consult received for DM education. RD saw pt on 09/04/19 and provided DM education. Please see Interdisciplinary Teaching Records for details. RD notified pt's RN. LT, RD
[2019-09-06 11:27] VITALS: BP_SYST 141
--- NOTE | 2019-09-06 11:40 | NUR ---
Discharge Planning: DCP faxed pt referral to [facility] (f [phone] p [phone]) DCP to follow up. Addendum: 09/06/19 at 1213 by Shani Blackburn DP [facility] (f [phone] p [phone]) per Nanci not contracted with insurance. DCP faxed to [facility] ([phone]) and Skip ([phone]) DCP to follow up. Addendum: 09/06/19 at 1317 by Shani Blackburn DP DCP followed up with [facility] ([phone]) not contracted. [facility] ([phone]) DCP spoke to Nabila and Rachel checking if staff available. DCP to follow up Addendum: 09/06/19 at 1659 by Shani Blackburn DP Late Entry: SCOTT spoke to Rachel at [facility] ([phone]) patient accepted, and she will call patient to make him aware of co-pay. Addendum: 09/06/19 at 170 by Shani Blackburn DP SCOTT received call from Rachel at [facility] ([phone]) stated that Cherelle the director notice the patient would be going to infusion center for IV medication. Rachel stated that if the patient can go to OP for IV meds, then it makes him non eligable for home health. I made Rachel aware patient has already discharged, SCOTT was made aware by nurse.
[2019-09-06 12:00] VITALS: BP_SYST 126
--- NOTE | 2019-09-06 12:15 | NUR ---
RN Rounds patient sitting in bedside chair eating lunch, tolerating well, patient denies any nausea or vomiting, patient denies any pain, no acute distress noted.
--- NOTE | 2019-09-06 14:04 | NUR ---
WOUND RE-EVALUATION: Dr. Paige arrived and assessed wound site with wound special needs child caregiver. Patient received in a Stacy Bed with an IsoFlex KATI mattress, awake, alert, and oriented. Patient is able to turn in bed independently. Levi Score is a 17. Past Medical History: Hypertension, Morbid Obesity, Rheumatoid Arthritis. Patient admitted with complaint of lower abdominal pain and edema. Microbiology: Blood culture results x2 in progress. Wound culture results showed positive gram rods, contamination suspected. Intrinsic factors that delay wound healing: Hyperglycemia, Hypoalbuminemia. Extrinsic factors that delay wound healing: Morbid Obesity. Wound Assessment: 1. Central Abdomen/Abdominal fold: Cellulitis with abscess, present on admission. Large area of erythema with calor receding away from cruz made on 09/02 at [facility]. Abdominal fold area has several nodules that may be abscesses. Drainage site is about 0.2 cm x 0.2 cm, but no wound is visible. Foul odor, moderate purulent drainage drainage. Recommend: Cleanse site with normal saline. Pat dry. Apply SurePrep to lencho-drainage site. Insert calcium alginate dressing into drainage area of abdominal fold area, then ABD pad and secure with paper tape. Perform site care daily, and as needed for dressing soiling or dislodgement. Also recommend: Encourage repositioning every 2 hours with pillow support and off-load pressure areas with pillows for pressure re-distribution. Perform skin care and monitor skin integrity Q shift. Discharge planning: Patient is being discharged home today and will follow up with Dr. Paige for the wound and a CT Scan. Instructed patient on how to apply the dressing (patient understood as verified by verbal teachback). Extra dressings will be sent home with patient for self-care until home health arrives.
--- NOTE | 2019-09-06 14:56 | NUR ---
discharge planning spoke with recreation activities coordinator chyna [facility] home health has not yet been set up, awaiting home health to be arranged for discharge home, informed patient, patient verbalized understanding.
--- NOTE | 2019-09-06 15:50 | NUR ---
discharge planning per Shani housing coordinator home health has been setup for patient, per patient he spoke with home health agency and home health has been arranged for wound care.
[2019-09-06 16:00] VITALS: BP_SYST 141
--- NOTE | 2019-09-06 16:13 | NUR ---
Discharge provided patient with discharge packet and instructions, patient verbalized understanding, per patient he has an appointment with the [facility] infusion center tomorrow morning at 1000, IV site to right forearm clean, dry, and intact, patient is to discharge home with peripheral IV site per Dr. Belcher, steady gait noted, respirations even and unlabored on room air, no acute distress noted, all belongings sent with patient, patient taken to parking lot via wheelchair. Addendum: 09/06/19 at 1615 by Billie Jacques RN sent patient with supplies to complete wound care until home health arrives for dressing changes, patient is able to verbalize wound care procedure.
== END 2019-09-06 16:15 | disposition home health service (06) | DRG 603 ==
LOC: SED 10:10 → SMU 12:45
PROVIDERS: ADMIT Internal Medicine; ATTEND Internal Medicine
DX: L03.311 Cellulitis of abdominal wall (principal); Z68.44 Body mass index [BMI] 60.0-69.9, adult; L02.211 Cutaneous abscess of abdominal wall; E66.01 Morbid (severe) obesity due to excess calories; E11.65 Type 2 diabetes mellitus with hyperglycemia; D64.9 Anemia, unspecified; M06.9 Rheumatoid arthritis, unspecified; Z91.013 Allergy to seafood; Z88.8 Allergy status to other drugs, medicaments and biological substances
CPT/HCPCS: 36415; 71045; 76700-TC; 80053; 81000-TC; 81003; 82306; 82607; 82962; 83036; 83540-TC; 83550-TC; 83605; 84484; 85025; 85610-TC; 85730-TC; 87040-TC; 87070-TC; 96365; 99285; J0690; J1815; J2405; J3370; J3490; J7040; J7060